=== PATIENT | female | born 1950 | race Caucasian/White ===

== ENCOUNTER 2023-06-17 13:46 | Outpatient (CLI) | payer MEDICARE | END 2023-06-17 13:47 | disposition home or self-care (01) | LOC: CSHLAB 13:46 | PROVIDERS: ATTEND Surgery | DX: Z01.818 Encounter for other preprocedural examination (principal); C18.4 Malignant neoplasm of transverse colon | CPT/HCPCS: 93005; 93010 ==

== ENCOUNTER 2023-06-20 05:32 | Day surgery (SDC) | payer MEDICARE ==
[2023-06-17 14:22] VITALS: BMI 35.2
[2023-06-20] MEDS ORDERED: EPINEPHrine 1 MG/ML VIAL ONE (06:33)
[2023-06-20] MEDS ORDERED: Bupivacaine PF 0.5% 30 ML VIAL ONE (06:33)
[2023-06-20] MEDS ORDERED: CEFAZOLIN 2 GM VIAL ONE (06:47)
[2023-06-20] MEDS ORDERED: Midazolam HCl 2 mg/2 ml Vial ONE (06:49)
[2023-06-20] MEDS ORDERED: Ondansetron PF 4 MG/2 ML Vial ONE (06:49)
[2023-06-20] MEDS ORDERED: Dexamethasone 4 mg/ml Vial ONE (06:49)
[2023-06-20] MEDS ORDERED: PROPOFOL 20 ML ONE (06:49)
[2023-06-20] MEDS ORDERED: fentaNYL 50 mcg/mL 1 mL Vial ONE (06:49)
[2023-06-20] MEDS ORDERED: Lidocaine 2% PF 5 ML VIAL ONE (06:49)
[2023-06-20] MEDS ORDERED: Acetaminophen 325 MG TAB PO PRN (08:02)
== END 2023-06-20 08:30 | disposition home or self-care (01) ==
LOC: CSHSDC 05:32
PROVIDERS: ATTEND Surgery
PROC: 0JH60WZ Insertion of Totally Implantable Vascular Access Device into Chest Subcutaneous Tissue and Fascia, Open Approach (ICD-10-PCS; principal; 2023-06-20)
DX: C18.4 Malignant neoplasm of transverse colon (principal); I10 Essential (primary) hypertension; Z88.5 Allergy status to narcotic agent; Z79.899 Other long term (current) drug therapy
CPT/HCPCS: 36561; 71045; C1788; J0171; J3010; J0665; J1100; J1642; J2001; J2250; J2405; J2704

== ENCOUNTER 2024-04-17 13:42 | Outpatient (CLI) | payer MEDICARE | END 2024-04-17 13:43 | disposition home or self-care (01) | LOC: CSHMAMMO 13:42 | PROVIDERS: ATTEND Family Medicine | DX: R92.8 Other abnormal and inconclusive findings on diagnostic imaging of breast (principal) | CPT/HCPCS: 76642; 77065; G0279 ==

== ENCOUNTER 2025-01-24 07:55 | Outpatient (CLI) | payer MEDICARE | END 2025-01-24 07:56 | disposition home or self-care (01) | LOC: CSHMAMMO 07:55 | PROVIDERS: ATTEND Internal Medicine | DX: N63.20 Unspecified lump in the left breast, unspecified quadrant (principal); N64.52 Nipple discharge; N60.42 Mammary duct ectasia of left breast; N61.0 Mastitis without abscess; N64.4 Mastodynia | CPT/HCPCS: 76642; 77066; G0279 ==